=== PATIENT | male | born 1945 | race Caucasian/White ===

== ENCOUNTER → 2021-11-23 10:09 | Outpatient (REF) | payer MEDICARE, OTHER, SELFPAY | LOC: ANHLAB 10:09 | PROVIDERS: PCP Internal Medicine; Visit Provider Nurse Practitioner | DX: L73.8 Other specified follicular disorders (principal) | CPT/HCPCS: 88305 ==

== ENCOUNTER 2023-06-14 16:49 | Emergency (ER) | payer MEDICARE, OTHER, SELFPAY ==
--- NOTE | ~2023-06-14 | CT_ITS ---
EXAMINATION: CTA chest PE protocol DATE: 06/14/2023 17:27 INDICATION: Shortness of breath. TECHNIQUE: Computed tomography angiography (CTA) of the chest was performed with 100 mL Omnipaque-350 intravenous contrast timed to evaluate the pulmonary arteries. Coronal maximum intensity projection 3D-reconstructions were created by the technologist. Automated exposure control and iterative reconst ruction technique were employed. The dose-length product was 449.43 mGy-cm. COMPARISON: Chest 2 views 12/24/2010 FINDINGS: The lungs demonstrate minimal atelectasis. A calcified left lung nodule and calcified left hilar lymph nodes are consistent with old granulomatous disease. No pleural effusion. The heart size is normal. No pericardial effusion. There is no pulmonary embolus. There is a chronic compression fra cture of L1. There are bridging endplate osteophytes at multiple levels in the spine, consistent with diffuse idiopathic skeletal hyperostosis (DISH). IMPRESSION: 1. No pulmonary embolus. Reviewed, dictated and finalized at location E. ENSARY TECHNICIAN IMPRESSION: 1. No pulmonary embolus.
[2023-06-14 16:48] VITALS: BP 138/85; PULSE 86; RESP 20; TEMP 36.2
--- NOTE | 2023-06-14 16:56 | ECG_ITS ---
Measurements Intervals [place] Rate: 70 P: 42 PA: 147 QRS: 15 QRSD: 98 T: 34 QT: 397 QTc: 430 Interpretive Statements SINUS RHYTHM BASELINE ARTIFACT NORMAL ECG NO PREVIOUS ECG AVAILABLE FOR COMPARISON Electronically Signed On 06-15-2023 14:35:52 ADMINISTRATIVE LIAISON by Jacky Kumari M.D.
--- NOTE | 2023-06-14 17:17 | ED.SOB ---
HPI - SOB/Dyspnea General Chief Complaint: Shortness of Breath/Dyspnea Stated Complaint: SOB Time Seen by Provider: 06/14/23 16:50 History of Present Illness HPI Narrative: 78-year-old male with a reported history of type 2 diabetes and remote TIA reports for evaluation for dyspnea for the past 3-4 days. Patient had a total knee replacement by Dr. Palomo on 06/04/23. No known complications from the surgery. He was started on Eliquis postop which he states he has been compliant with. He is presenting for a workup for PE. On My evaluation, the patient's is placed on 2 L nasal cannula satting 100%. He does not normally wear oxygen at home. He reports some swelling in his right extremity secondary to knee replacement. States he has gone to 3 PT appointments since and has had some improvement. Denies redness or purulent drainage out of the incision site. Denies history of COPD, CHF, melena or hematochezia. Denies coughing, fever, chest pain, abdominal pain, nausea or vomiting. Related Data Home Medications Medication Instructions Recorded Confirmed aspirin 325 mg tablet 325 mg PO DAILY 11/03/20 11/03/20 balsalazide 750 mg capsule 2,250 mg PO TID 11/03/20 11/03/20 empagliflozin 10 mg tablet 10 mg PO DAILY 11/03/20 11/03/20 (Jardiance) folic acid 1 mg tablet 1 mg PO DAILY 11/03/20 11/03/20 metformin 500 mg tablet 500 mg PO DAILY 11/03/20 11/03/20 sitagliptin phosphate 100 mg 100 mg PO DAILY 11/03/20 11/03/20 tablet (Januvia) Allergies Allergy/AdvReac Type Severity Reaction Status Date / Time No Known Allergies Allergy Verified 11/23/21 09:48 Review of Systems Review of Systems: CONSTITUTIONAL: Denies fever, chills, or sweats. EYES: Denies visual changes, redness, or discharge. ENT: Denies rhinorrhea, congestion, sore throat, or otalgia. CARDIOVASCULAR: Denies chest pain, palpitations, or edema. RESPIRATORY: See HPI GASTROINTESTINAL: Denies abdominal pain, nausea, vomiting, or diarrhea. GENITOURINARY: Denies dysuria or hematuria. SKIN: Denies rash or itching. MUSCULOSKELETAL: See HPI NEUROLOGIC: Denies headache, numbness, or weakness. PSYCHIATRIC: Denies anxiety or depression. [facility] Past Medical History Medical History Diabetes History of stroke Overweight Surgical History Surgical History History of arthroscopy of knee History of shoulder surgery Hx of inguinal hernia surgery Social History Social History Smoking status: Current some day smoker Tobacco type: cigars Alcohol intake: never Substance use: never Exam Narrative: GENERAL: Well-appearing, well-nourished, and in no acute distress. Patient resting comfortably in exam bed. He is on 2 L nasal cannula, speaking in full sentences. HEAD: Normocephalic, atraumatic. EYES: PERRLA and EOMI. ENT: Nares clear, no rhinorrhea or epistaxis. Mucous membranes moist. NECK: Supple. CHEST: Clear to auscultation. No respiratory distress. HEART: Regular rate and rhythm. No murmur heard. Normal peripheral pulses. ABDOMEN: Soft, nontender, nondistended, normal active bowel sound MSK: RLE: Well-healing surgical incision over the right knee without surrounding erythema or purulent drainage. No warmth to knee. There is generalized edema to right knee. RUE: Mild tenderness overlying the right biceps without overlying skin changes. Full range of motion of shoulder, elbow and all fingers. Sensation intact throughout upper extremity. Axillary, radial, median and ulnar nerves are intact. DP pulse 2 +. SKIN: Warm, dry, no rash. NEURO: No focal deficits. Alert and oriented x3 Course Vital Signs Vital signs: Vital Signs Temperature 97.2 F L 06/14/23 16:48 Pulse Rate 86 06/14/23 16:48 Respiratory Rate 20 06/14/23 16:48 Blood Pressure 138/85 06/14/23 16:48
[2023-06-14 17:25] LABS: Estimated CRCL calculation 75 ml/min; Estimated Glomerular Filt Rate > 60
[2023-06-14 17:37] LABS: Basophils Absolute Auto 0.1 K/mm3 (0.0-0.1); Basophils Percent Auto 0.4 % (0.2-1.2); Eosinophils Absolute Auto 0.1 K/mm3 (0-0.3); Eosinophils Percent Auto 1.2 % (0-4.4); Hematocrit 40.2 % (42.0-52.0); Hemoglobin 13.3 g/dL (14.0-18.0); Immature Granulocyte Absolute 0.06 K/mm3 (0.00-0.031); Immature Granulocyte Percent A 0.5 % (0-0.5); Lymphocytes Absolute Auto 2.21 K/mm3 (0.9-3.2); Lymphocytes Percent Auto 19.6 % (18.3-44.2); Mean Corpuscular HGB Conc 33.1 g/dl (32-36); Mean Corpuscular Hemoglobin 31.1 pg (26-34); Mean Corpuscular Volume 93.9 fl (80-100); Mean Platelet Volume 9.8 fl (7.4-10.4); Monocytes Absolute Auto 0.9 K/mm3 (0.1-0.6); Monocytes Percent Auto 7.6 % (2.6-8.5); Neutrophils Percent Auto 70.7 % (45.5-73.1); Platelet Count Result 356 k/mm3 (150-375); Red Blood Count 4.28 M/mm3 (4.6-6.20); Red Cell Distribution Width 12.7 % (11.5-14.5); White Blood Count 11.3 K/mm3 (4.5-10.0)
[2023-06-14 17:47] LABS: Prothrombin Time 13.6 Seconds (11.1-14.7)
[2023-06-14 17:47] LABS: Alanine Aminotransferase 19 U/L (6-50); Albumin Level 4.5 g/dL (3.5-5.1); Alkaline Phosphatase 102 U/L (38-126); Anion Gap 13 mmol/L (8-16); Aspartate Amino Transferase 31 U/L (17-59); Blood Urea Nitrogen 19 mg/dL (9-20); Calcium 9.5 mg/dL (8.4-10.2); Carbon Dioxide 18 mmol/L (22-30); Chloride 108 mmol/L (98-107); Estimated CRCL calculation 85 ml/min; Estimated Glomerular Filt Rate > 60; Glucose 188 mg/dL (65-110); Potassium 4.3 mmol/L (3.4-5.0); Sodium 139 mmol/L (137-145)
[2023-06-14 17:48] LABS: Partial Thromboplastin Time 34.1 SECONDS (22.3-36.8)
[2023-06-14 17:59] LABS: NT Pro B Type Natriuretic Pept 148 pg/mL (19.9-100); Troponin I < 0.012 ng/mL (0.000-0.034)
[2023-06-14 18:21] LABS: Influenza A QL RT-PCR Negative (Negative); Influenza B QL RT-PCR Negative (Negative); RSV RNA, RT-PCR Negative (Negative); SARS-CoV-2 RNA PCR Negative (Negative)
[2023-06-14 18:52] VITALS: BP 127/76; PULSE 69; RESP 21; O2SAT 100
[2023-06-14 19:07] LABS: Appearance Urine Clear (Clear); Bilirubin Urine Negative (Negative); Blood Urine Negative (Negative); Color Urine Yellow (Yellow); Glucose Urine UA 3+ mg/dL (Negative); Ketones Urine Trace mg/dL (Negative); Leukocyte Esterase Ur Negative LEU/UL (Negative); Nitrate Urine Negative (Negative); Protein Urine Negative (Negative); Urobilinogen Urine 0.2 mg/dL (<2.0); pH Urine 5.5 (5.0-9.0)
--- NOTE | 2023-06-14 19:17 | PC.NURSE ---
Assumed care of pt from JAVI Stafford at this time. Pt resting comfortably in bed. Pt completed road test and satted 98%. EDP Carolin made aware.
[2023-06-14 19:21] LABS: Specific Grav Ur 1.025 (1.001-1.035)
[2023-06-14 19:24] LABS: Add Urine Microscopic? NO
[2023-06-14 19:38] VITALS: BP 129/74; PULSE 70; RESP 17; O2SAT 100
== END 2023-06-14 19:40 | disposition home or self-care (01) ==
PROVIDERS: Emergency Medicine; Emergency Provider Physician Assistant; PCP Internal Medicine
DX: R06.02 Shortness of breath (principal); D64.9 Anemia, unspecified; Z20.822 Contact with and (suspected) exposure to COVID-19; E11.9 Type 2 diabetes mellitus without complications; E66.3 Overweight; Z68.26 Body mass index [BMI] 26.0-26.9, adult; Z86.73 Personal history of transient ischemic attack (TIA), and cerebral infarction without residual deficits; Z96.651 Presence of right artificial knee joint; F17.290 Nicotine dependence, other tobacco product, uncomplicated; Z79.82 Long term (current) use of aspirin; Z79.84 Long term (current) use of oral hypoglycemic drugs
CPT/HCPCS: 71275; 80053; 81003; 83880; 84484; 85025; 85610; 85730; 87637; 93005; 99284; Q9967

== ENCOUNTER 2023-09-24 10:06 | Outpatient (CLI) | payer MEDICARE, OTHER, SELFPAY ==
--- NOTE | 2023-09-24 11:00 | NEURO_ITS ---
Impression: # Diabetic complains of right hand 4th and 5th finger numbness. # No Carpal Tunnel Syndrome. # Right ulnar neuropathy across the elbow. # Needle/EMG exam neurogenic in right 1st DI and ADM. Nerve Conduction Studies Anti Sensory Summary Table Stim Site NR Peak (ms) P-T Amp (?V) Site1 Site2 Delta-P (ms) Dist (cm) Heriberto (m/s) Right Median Anti Sensory (2-3nd Digit) Wrist 4.0 31.7 Wrist 2-3nd Digit 4.0 14.0 35 Wrist 4.1 22.0 Wrist 2-3nd Digit 4.0 14.0 35 Right Radial Anti Sensory (Base 1st Digit) Wrist 2.6 19.2 Wrist Base 1st Digit 2.6 0.0 Right Ulnar Anti Sensory (5th Digit) Wrist 4.2 24.4 Wrist 5th Digit 4.2 14.0 33 Motor Summary Table Stim Site NR Onset (ms) O-P Amp (mV) Site1 Site2 Delta-0 (ms) Dist (cm) Heriberto (m/s) Right Median Motor (Abd Poll Brev) Wrist 4.0 4.8 Elbow Wrist 5.4 30.0 56 Elbow 9.4 3.7 Right Ulnar Motor (Abd Dig Minimi) Wrist 3.3 4.7 A Elbow Wrist 8.0 32.0 40 A Elbow 11.3 3.1 B Elbow Wrist 4.2 20.0 48 B Elbow 7.5 3.6 F Wave Studies NR F-Lat (ms) L-R F-Lat (ms) Right Median (Mrkrs) (Abd Poll Brev) 30.82 Right Ulnar (Mrkrs) (Abd Dig Min) 30.23 EMG Side Muscle Nerve Root Ins Act Fibs Amp Dur Recrt Comment Right 1stDorInt Ulnar C8-T1 Nml 3+ Incr >12ms +2 Right Ext Indicis Radial (Post Int) C7-8 Nml Nml Nml Nml Nml Right Ext Digitorum Radial (Post Int) C7-8 Nml Nml Nml Nml Nml Right BrachioRad Radial C5-6 Nml Nml Nml Nml Nml Right PronatorTeres Median C6-7 Nml Nml Nml Nml Nml Right Abd Poll Brev Median C8-T1 Nml Nml Nml Nml Nml Right ABD Dig Min Ulnar C8-T1 Nml 3+ Incr >12ms +2 MTDD
== END 2023-09-24 10:07 | disposition home or self-care (01) ==
LOC: ANHNEURO 10:07
PROVIDERS: PCP Internal Medicine; Visit Provider Internal Medicine
DX: G56.21 Lesion of ulnar nerve, right upper limb (principal)
CPT/HCPCS: 95886; 95909

== ENCOUNTER 2024-06-09 08:46 | Outpatient (CLI) | payer MEDICARE, OTHER, SELFPAY ==
--- NOTE | ~2024-06-09 | XR_ITS ---
EXAMINATION: XR hand RT min 3V DATE: 06/09/2024 09:03 INDICATION: Trigger thumb, right thumb. TECHNIQUE: 4 views of right hand were obtained. COMPARISON: None. FINDINGS: Alignment is normal. No fracture. There is mild osteoarthritis of distal radioulnar joint, severe osteoarthritis of radioscaphoid joint, mild osteoarthritis of triscaphe joint, and moderate os teoarthritis of first carpometacarpal joint. There is mild osteoarthritis of many of the metacarpopha langeal joints and interphalangeal joints. There is moderate osteoarthritis of first interphalangeal joint and fifth distal interphalangeal joint. IMPRESSION: 1. Polyarticular osteoarthritis. Reviewed, dictated and finalized at location A. EL DEPARTMENT MANAGER
--- OUTSIDE RECORDS SUMMARY | 2024-06-09 08:51 | XMS_ITS | Clinical Summary ---
Author Organization [facility] Address [address] [place] [address] Care Team Providers Care Projection Engineer Name Role Phone Will Spencer MD Primary Care Provider Allergies Active Allergy Reactions Criticality Noted Date Comments Buspirone Apixaban Rash Medium 07/18/2023 Says he thinks he may be allergic Medications folic acid (FOLVITE) 1 mg tablet take 1 tablet (1MG) by oral route every day 0 01/09/2011 Active aspirin 325 mg tablet take 1 tablet (325MG) by oral route every day 0 01/09/2011 Active ONETOUCH DELICA LANCETS 30 gauge misc USE TO TEST BS ONCE D 3 06/26/2018 Active balsalazide (COLAZAL) 750 mg capsule Take 1 capsule (750 mg total) by mouth 3 (three) times a day 180 capsule 08/11/2019 Active blood glucose diagnostic (OneTouch Ultra Test) strip Use to check sugars daily 100 each 11 09/03/2019 Active pravastatin (PRAVACHOL) 20 mg tablet Take 1 tablet (20 mg total) by mouth daily 90 tablet 3 07/18/2023 Active metFORMIN XR (GLUCOPHAGE XR) 500 mg 24 hr tablet TAKE 2 TABLETS TWO TIMES A DAY WITH MEALS 360 tablet 3 10/23/2023 Active Januvia 100 mg tablet TAKE 1 TABLET DAILY 90 tablet 3 01/09/2024 Active Jardiance 10 mg tablet TAKE 1 TABLET EVERY MORNING 90 tablet 3 01/09/2024 Active Active Problems Problem Noted Date Diagnosed Date Acquired trigger finger 07/11/2021 Degenerative joint disease of hand 07/11/2021 Disorder of shoulder 07/11/2021 Incomplete tear of rotator cuff 07/11/2021 Osteoarthritis of knee 07/11/2021 Primary localized osteoarthrosis of shoulder reg ion 07/11/2021 Radiotherapy follow-up 07/11/2021 Shoulder joint pain 07/11/2021 Acquired hallux rigidus of left foot 10/25/2020 Plantar fasciitis of left foot 10/20/2020 History of colonic polyps 12/10/2019 Hyperlipidemia associated with type 2 diabetes [place] 11/05/2017 Assessment & Plan (02/04/2024 2:33 PM CDT): Chronic, stable. Continue current regimen including Pravachol Update lipid profile Assessment & Plan (07/18/2023 11:16 AM CDT): Importance of lowering LDL cholesterol discussed Restart Pravachol Rx sent Assessment & Plan (01/03/2023 3:04 PM CDT): Chronic, well controlled Conitnue Pravastatin Update lipid profile Assessment & Plan (06/28/2022 4:22 PM BICYCLE II ASSEMBLER): Chronic, uncontrolled Increased cardiovascular risk in diabetic patient was discussed Restart pravastatin 20 mg daily Assessment & Plan (12/28/2021 1:33 PM CDT): Chronic, well controlled Low fat Low cholesterol diet Exercise Continue statin therapy Check lipid profile Assessment & Plan (06/27/2021 4:16 PM BICYCLE II ASSEMBLER): Chronic, well controlled Continue current meds Assessment & Plan (01/19/2021 11:56 AM CDT): Lipids checked today. At goal Stay on Pravachol Assessment & Plan (07/12/2020 1:27 PM CDT): Goal of treatment , LDL cholesterol less than 100 ( less than 70 in patients with history of heart attacks and / or strokes ) NonHDL cholesterol ( total cholesterol minus HDL cholesterol ) goal less than 130 ( less than 100 in patients with history of heart attacks and / or strokes ) Low cholesterol, low fat diet was discussed and advised. Daily exercise On statin therapy with Pravastatin. Assessment & Plan (03/01/2020 12:54 PM BICYCLE II ASSEMBLER): Goal of treatment , LDL cholesterol less than 100 ( less than 70 in patients with history of heart attacks and / or strokes ) NonHDL cholesterol ( total cholesterol minus HDL cholesterol ) goal less than 130 ( less than 100 in patients with history of heart attacks and / or strokes ) Low cholesterol, low fat diet was discussed and advised. Daily exercise On statin therapy with Pravachol Assessment & Plan (09/03/2019 1:44 PM CDT): Goal of treatment , LDL cholesterol less than 100 ( less than 70 in patients with history of heart attacks and / or strokes ) NonHDL cholesterol ( total cholesterol minus HDL cholesterol ) goal less than 130 ( less than 100 in patients with history of heart attacks and / or strokes ) Low cholesterol, low fat diet was discussed and advised. Daily exercise Lipids done today On statin therapy with Pravachol Assessment & Plan (03/05/2019 10:05 AM BICYCLE II ASSEMBLER): Goal of treatment , LDL cholesterol less than 100 ( less than 70 in patients with history of heart attacks and / or strokes ) NonHDL cholesterol ( total cholesterol minus HDL cholesterol ) goal less than 130 ( less than 100 in patients with history of heart attacks and / or strokes ) Low cholesterol, low fat diet was discussed and advised. Daily exercise On statin therapy Assessment & Plan (07/22/2018 4:01 PM CDT): Goal of treatment , LDL cholesterol less than 100 ( less than 70 in patients with history of heart attacks and / or strokes ) NonHDL cholesterol ( total cholesterol minus HDL cholesterol ) goal less than 130 ( less than 100 in patients with history of heart attacks and / or strokes ) Low cholesterol, low fat diet was discussed and advised. Daily exercise On statin therapy Assessment & Plan (05/13/2018 10:17 AM BICYCLE II ASSEMBLER): Goal of treatment , LDL cholesterol less than 100 ( less than 70 in patients with history of heart attacks and / or strokes ) NonHDL cholesterol ( total cholesterol minus HDL cholesterol ) goal less than 130 ( less than 100 in patients with history of heart attacks and / or strokes ) Low cholesterol, low fat diet was discussed and advised. Daily exercise On statin therapy Assessment & Plan (11/05/2017 11:56 AM CDT): Goal of treatment , LDL cholesterol less than 100 ( less than 70 in patients with history of heart attacks and / or strokes ) NonHDL cholesterol ( total cholesterol minus HDL cholesterol ) goal less than 130 ( less than 100 in patients with history of heart attacks and / or strokes ) Low cholesterol, low fat diet was discussed and advised. Daily exercise On statin therapy Cerebrovascular accident (CVA) 07/19/2016 Obstructive sleep apnea syndrome 07/19/2016 History of surgical procedure 07/09/2016 Type 2 diabetes mellitus 08/27/2013 Overview (07/27/2016): DMII WO CMP UNCNTRLD Assessment & Plan (02/04/2024 2:33 PM CDT): Chronic, well-controlled. Continue current regimen including metformin, Jardiance and Januvia Importance of diet and exercise was discussed Assessment & Plan (07/18/2023 11:16 AM CDT): Chronic, well controlled Diet and exercise discussed Continue current regimen with Januvia, Jardiance and Metformin Will get report of eye exam Assessment & Plan (01/03/2023 3:04 PM CDT): Hba1c was Lab Results Component Value Date HGBA1C 7.1 01/03/2023 today, indicating adequate DM control Goal Hba1c and blood glucose explained Diet and exercise were advised Prevention and treatment of hyypoglcyemia were discussed with the patient Blood glucose monitoring : 1-2 x wk Adjustment to medications: Continue current regimen with Januavia, Jardiance and Metformin Assessment & Plan (06/28/2022 4:22 PM BICYCLE II ASSEMBLER): Hba1c was Lab Results Component Value Date HGBA1C 7.3 06/28/2022 today, indicating suboptimal DM control Goal Hba1c and blood glucose explained Diet and exercise were advised Prevention and treatment of hyypoglcyemia were discussed with the patient Blood glucose monitoring : 1 or twice a day with fingersticks Adjustment to medications: Continue Januvia and Jardiance Continue metformin Assessment & Plan (12/28/2021 1:33 PM CDT): Hba1c was Lab Results Component Value Date HGBA1C 6.4 12/28/2021 today, indicating adequate DM control Goal Hba1c and blood glucose explained Diet and exercise were advised Prevention and treatment of hyypoglcyemia were discussed with the patient Blood glucose monitoring : 1 x day Adjustment to medications: continue current Assessment & Plan (06/27/2021 4:16 PM BICYCLE II ASSEMBLER): Hba1c was Lab Results Component Value Date HGBA1C 6.9 06/27/2021 today, indicating adequate DM control Goal Hba1c and blood glucose explained Diet and exercise were advised Prevention and treatment of hyypoglcyemia were discussed with the patient Blood glucose monitoring : 1 or twice a week Adjustment to medications: Continue current Assessment & Plan (01/19/2021 11:53 AM CDT): Hba1c was Lab Results Component Value Date HGBA1C 6.4 01/19/2021 today, indicating adequate DM control Goal Hba1c and blood glucose explained Diet and exercise , discussed Prevention and treatment of hyypoglcyemia discussed. Blood glucose monitoring : 1-2 x week Adjustment to oral medications: Continue with current . Assessment & Plan (07/12/2020 1:26 PM CDT): Hba1c was Lab Results Component Value Date HGBA1C 7.3 07/12/2020 today, indicating suboptimal DM control Goals blood sugars of 120-160 and Hba1c under 7 % was explained. 1800 calorie, consistent carb diet recommended, no more than 3-45 grams of carbs per meal, avoiding concentrated sweet drinks and rapid absorption carbs. 25-45 min daily aerobic and resistance exercise recommended Prevention and treatment of hyypoglcyemia discussed. Continue current orals Assessment & Plan (03/01/2020 12:54 PM BICYCLE II ASSEMBLER): Hba1c was Lab Results Component Value Date HGBA1C 6.9 03/01/2020 today, indicating adequate DM control with weight gain Goals blood sugars of 120-160 and Hba1c under 7 % was explained. 1800 calorie, consistent carb diet recommended, no more than 3-45 grams of carbs per meal, avoiding concentrated sweet drinks and rapid absorption carbs. 25-45 min daily aerobic and resistance exercise recommended Prevention and treatment of hyypoglcyemia discussed. Blood glucose monitoring with fingers sticks. Will consider switching to a GLP-1 analog Assessment & Plan (09/03/2019 1:43 PM CDT): Hba1c was Lab Results Component Value Date HGBA1C 6.4 09/03/2019 today, indicating adequate DM control 1800 calorie, consistent carb diet recommended, no more than 3-45 grams of carbs per meal, avoiding concentrated sweet drinks and rapid absorption carbs. 25-45 min daily aerobic and resistance exercise recommended Prevention and treatment of hyypoglcyemia discussed. Blood glucose monitoring with fingers sticks.... Medications: Continue current Assessment & Plan (03/05/2019 10:05 AM BICYCLE II ASSEMBLER): Hba1c was Lab Results Component Value Date HGBA1C 6.4 03/05/2019 today, indicating DM control 127 1800 calorie, consistent carb diet recommended, no more than 3-45 grams of carbs per meal, avoiding concentrated sweet drinks and rapid absorption carbs. 25-45 min daily aerobic and resistance exercise recommended Prevention and treatment of hyypoglcyemia discussed. Blood glucose monitoring with fingers sticks 2-3 x week Medications: Lower Metformin to 1000 mg with dinner only . Assessment & Plan (07/22/2018 4:01 PM CDT): Last Hba1c was 7.1 , indicating better DM control 1800 calorie, consistent carb diet recommended 25-45 min daily aerobic and resistance exercise recommended Prevention and treatment of hyypoglcyemia discussed. Blood glucose monitoring with fingers sticks 1-2 x day . Oral medications: continue current meds. Assessment & Plan (05/13/2018 10:17 AM BICYCLE II ASSEMBLER): Hba1c was Lab Results Component Value Date HGBA1C 9.1 05/13/2018 today, indicating poorly, worsening DM control 1800 calorie, consistent carb diet recommended 25-45 min daily aerobic and resistance exercise recommended Prevention and treatment of hyypoglcyemia discussed. Blood glucose monitoring with fingers sticks 1-2 x day . Oral medications: take meds regularly No changes now Might need to add insulin if hba1c is persistently elevated Assessment & Plan (11/05/2017 11:54 AM CDT): Hba1c was Lab Results Component Value Date HGBA1C 7.3 11/05/2017 today, indicating adequate DM control 1800 calorie, consistent carb diet recommended 30 min daily aerobic and resistance exercise recommended Prevention and treatment of hyypoglcyemia discussed. Blood glucose monitoring with fingers sticks 1-2 x day . Assessment & Plan (05/21/2017 3:13 PM BICYCLE II ASSEMBLER): Hba1c was 7.5 today, indicating sub-optima DM control 1800 calorie, consistent carb diet recommended 30 min daily aerobic and resistance exercise recommended Prevention and treatment of hyypoglcyemia discussed. Blood glucose monitoring with fingers sticks 1-2 x day . Foot care was discussed. Assessment & Plan (10/25/2016 1:58 PM CDT): Hba1c was 6.8 today, indicating adequate DM control 1800 calorie, consistent carb diet recommended 30 min daily aerobic and resistance exercise recommended Foot care discused. Prevention and treatment of hyypoglcyemia discussed. Hyperlipidemia 02/26/2013 Overview (07/25/2016): HYPERLIPIDEMIA NEC/NOS Assessment & Plan (05/21/2017 3:15 PM BICYCLE II ASSEMBLER): Goal of treatment , LDL cholesterol less than 100 ( less than 70 in patients with history of heart attacks and / or strokes ) NonHDL cholesterol goal less than 130 ( less than 100 in patients with history of heart attacks and / or strokes ) Continue statin therapy With Simvastatin Assessment & Plan (10/25/2016 1:58 PM CDT): Goal of treatment , LDL cholesterol less than 100 ( less than 70 in patients with history of heart attacks and / or strokes ) NonHDL cholesterol goal less than 130 / 100 Lipids at goal. Continue statin therapy Low cholesterol diet, exercise advised. Nonspecific colitis 02/14/2011 Surgical History Surgery Date Site/Laterality Comments OTHER SURGICAL HISTORY colitis: under GI care HERNIA REPAIR Hernia repair SHOULDER SURGERY WRIST FRACTURE SURGERY KNEE SURGERY Medical History Medical History Date Comments Hx Other Medical colitis Cerebrovascular accident (CVA) (HCC) Cerebrovascular accident Arthritis Arthritis Hx Other Medical not claustropho bic; Comments: SMALLS 02/25/2014 - Diabetes mellitus (HCC) Inflammatory bowel disease Sleep apnea Family History Medical History Relation Name Comments Cancer Brother Kidney disease Father Renal disease ; Diabetes Father's Brother Diabetes me llitus; Kidney disease Sister Relation Name Status Comments Brother Father Father's Brother Sister Social History Tobacco Use Types Packs/Day Years Used Date Smoking Tobacco: Former Cigars Smokeless Tobacco: Former Chew Tobacco Cessation:Counseling Given: Not Answered Alcohol Use Standard Drinks/Week Comments Yes 0 (1 standard drink = 0.6 oz pur e alcohol) AUDIT-C Answer Date Recorded Q1: How often do you have a drink containing alcohol? Never 02/04/2024 Q2: How many drinks containi ng alcohol do you have on a typical day when you are drinking? Patient does not drink Q3: How often do you have si x or more drinks on one occasion? Never 02/04/2024 PHQ-2 Answer Date Recorded PHQ-2 Total Score (If total score is 3 or more points, staff should administer the PHQ-9) 0 02/04/2024 Sex and Gender Information Value Date Recorded Sex Assigned at Not on file Legal Sex Male 12:23 AM BICYCLE II ASSEMBLER Gender Identity Not on file Sexual Orientation Straight 02/04/2024 2: 03 PM CDT Obstetrics History Last Filed Vital Signs Vital Sign Reading Time Taken Comments Blood Pressure 102/60 02/04/2024 2:04 PM CDT Pulse 78 02/04/2024 2:04 PM CDT Temperature - - Respiratory Rate 18 02/04/2024 2:04 PM CDT Oxygen Saturation - - Inhaled Oxygen Concentration - - Weight 90.4 kg (199 lb 3.2 oz) 02/04/2024 2:04 P M CDT Height 165.1 cm (5' 5 ) 02/04/2024 2:04 PM CDT Body Mass Index 33.15 02/04/2024 2:04 PM CDT Plan of Treatment Health Maintenance Due Date Last Done Comments Hepatitis C Screening 1945 Hepatitis B Screening 1965 Pneumococcal vaccine 65+ (1 of 2 - PCV) 1966 Zoster Vaccine (1 of 2) 1997 Abdominal Aortic Aneurysm (A AA) Screen 01/26/2012 Well Visit 65+ 01/26/2012 DTaP/Tdap/Td Vaccine (1 - Tdap) 07/27/2017 8 Influenza Vaccine (#1) 2023 Foot Exam 01/04/2024 01/03/2023, 09/0 11/2021, 06/27/2021, Additional history exists Dilated Eye Exam 01/16/2024 01/15/2023, , 06/27/2021, Additional history exists Hemoglobin A1C 08/04/2024 02/04/2024, 06/21, 01/03/2023, Additional history exists Albumin Creatinine Ratio, Urine 02/03/2025 02/04/2024, 01/04/2023, 12/28/2021, Additional history exists Depression Screening 02/03/2025 02/04/2024, 02/04/2024, 12/28/2021, Additional history exists Fall Risk Assessment 02/03/2025 02/04/2024 Lipid Panel 02/03/2025 02/04/2024, 12/21, 12/28/2021, Additional history exists eGFR 02/03/2025 02/04/2024, 12/21, 12/28/2021 Procedures Procedure Name Priority Date/Time Associated Diagnosis Comments EGFR Routine 02/04/2024 2:55 PM CDT Type 2 diabetes mellitus with hyperglycemia, without long-term current use of insulin (HCC) LIPID PANEL Routine 02/04/2024 2:55 PM CDT Type 2 diabetes mellitus with hyperglycemia, without long-term current use of insulin (HCC) ALBUMIN CREATININE RATIO, URINE Routine 02/04/2024 2:55 PM CDT Type 2 diabetes mellitus with hyperglycemia, without long-term current use of insulin (HCC) POCT HEMOGLOBIN A1C Routine 02/04/2024 2 :07 PM CDT Type 2 diabetes mellitus with hyperglycemia, without long-term current use of insulin (HCC) DIABETES EYE EXAM Routine 01/15/2023 8:59 AM CDT from Last 3 Months or Most Recently Relevant to Health Maintenance Results * eGFR (02/04/2024 2:55 PM CDT) eGFR >90 >=60 mL/min/1. 73 m2 Comment: Interpretive Data Reference Interval Normal >/= 90 mL/min/1.73m2 Mildly decreased* 60 - 89 mL/min/1.73m2 Mildly to moderately decreased 45 - 59 mL/min/1.73m2 Moderately to severely decreased 30 - 44 mL/min/1.73m2 Severely decreased 15 - 29 mL/min/1.73m2 Kidney Failure < 15 mL/min/1.73m2 *Relative to young adult level Estimated glomerular filtration rate is determined by the 2020 CKD-EPI equation recommended by the National Kidney Foundation (A Unifying Approach to GFR Estimation: Recommendations of the NKF-ASK Task Force on Reassessing the Inclusion of Race in Diagnosing Kidney Disease, JASN 2020). The CKD-EPI equation should not be used for patients with unstable renal function and has not been validated in children and those over 70. Current interpretive data was last reviewed 2021. Blood 02/04/2024 2:55 PM CDT 02/04/2024 5:45 PM CDT us Kenny Jewell MD LAB BLOOD ORDERABLES Final Resul t DI [facility] [id number] [address] Department [place] [address] * Albumin Creatinine Ratio, Urine (02/04/2024 2:55 PM CDT) Albumin Ur <12.0 mg/L Comment: Interpretive Data No reference range established. Current interpretive data was last revised 2018. Creatinine Ur 80.4 mg/dL DI PEREZ Comment: Interpretive Data No reference range established. Current interpretive data was last revised 2018. Albumin Creatinine Ratio, Ur <15 1 - 29 mg/g DI Urine 02/04/2024 2:55 PM CDT 02/04/2024 5:33 PM CDT us Kenny Jewell MD LAB URINE ORDERABLES [facility] [id number] Department [place] [address] * (ABNORMAL) Lipid panel (02/04/2024 2:55 PM CDT) Cholesterol 147 30 - 199 mg/dL Comment: Interpretive Data Ages < or = 19 years Acceptable: <170 mg/dL Borderline high: 170-199 mg/dL High: >or= 200 mg/dL Ages > or = 20 years Desirable: <200 mg/dL Borderline high: 200-239 mg/dL High: >or= 240 mg/dL Literature References: 1. Expert Panel on Integrated Guidelines for Cardiovascular Health and Risk Reduction in Children and Adolescents. Pediatrics 2011;128:S213 2. NCEP Expert Panel. Circulation 2004;110:227 Current Interpretive Data was last revised on 2017. Triglycerides 152(H) <=149 mg/dL DI Comment: Interpretive Data Ages < or = 9 years Acceptable: <75 mg/dL Borderline high: 75-99 mg/dL High: >or= 100 mg/dL Ages 10 to 20 years Acceptable: <90 mg/dL Borderline high: 90-129 mg/dL High: >or= 130 mg/dL Ages > or = 20 years Desirable: <150 mg/dL Borderline high: 150-199 mg/dL High: 200-499 mg/dL Very high: >or= 499 mg/dL Literature References: 1. Expert Panel on Integrated Guidelines for Cardiovascular Health and Risk Reduction in Children and Adolescents. Pediatrics 2011;128:S213 2. NCEP Expert Panel. Circulation 2004;110:227 Current Interpretive Data was last revised on 2017. HDL 43 >=40 mg/dL DI Comment: Interpretive Data Ages < or = 19 years Acceptable: >45 mg/dL Borderline low: 40-45 mg/dL Low: <40 mg/dL Ages > or = 20 years Desirable: >or= 60 mg/dL Low: <40 mg/dL Literature References: 1. Expert Panel on Integrated Guidelines for Cardiovascular Health and Risk Reduction in Children and Adolescents. Pediatrics 2011;128:S213 2. NCEP Expert Panel. Circulation 2004;110:227 Current Interpretive Data was last revised on 2017. LDL, calculated 78 <=129 mg/dL DI P[facility]Z Comment: Interpretive Data Ages < or = 19 years Acceptable: <110 mg/dL Borderline high: 110-129 mg/dL High: >or= 130 mg/dL Ages > or = 20 years Optimal: <100 mg/dL Near optimal: 100-129 mg/dL Borderline high: 130-159 mg/dL High: >160 mg/dL Calculated using the Augustus LDL-C estimating equation. This equation was implemented on 2023. Prior to this date LDL-C was estimated using the Friedewald equation. Literature References: 1. Expert Panel on Integrated Guidelines for Cardiovascular Health and Risk Reduction in Children and Adolescents. Pediatrics 2011;128:S213 2. NCEP Expert Panel. Circulation 2004;110:227 3. Augustus Strong et al. ALEAH Cardiol. 2019August 20;5(5):540-548. doi: [email or web address] Current Interpretive Data was last revised on 2023. Non-HDL Cholesterol 104 mg/dL DI Comment: Interpretive Data Ages < or = 19 years Acceptable: <120 mg/dL Borderline high: 120-144 mg/dL High: >145 mg/dL Ages > or = 20 years When triglycerides are >200 mg/dL, Non-HDL cholesterol is a secondary target of therapy with treatment goals that are 30 mg/dL greater than the LDL cholesterol target. Literature References: 1. Expert Panel on Integrated Guidelines for Cardiovascular Health and Risk Reduction in Children and Adolescents. Pediatrics 2011;128:S213 2. NCEP Expert Panel. Circulation 2004;110:227 Current Interpretive Data was last revised on 2017. Chol/HDL ratio 3 DI Blood 02/04/2024 2:55 PM CDT 02/04/2024 5:33 PM CDT us Kenny Jewell MD LAB [place] [id number] [address] Department [place] [address] * (ABNORMAL) POCT hemoglobin A1c (02/04/2024 2:07 PM CDT) Hemoglobin A1C, POC 6.8 4.0 - 5.6 % Comment:none Capillary blood 02/04/2024 2 :07 PM CDT Kenny Jewell MD POINT OF CARE TEST ORDERABLES Fi nal Result * HM DIABETES EYE EXAM (01/15/2023 8:59 AM CDT) Historical Provider HEALTH MAINTENANCE Final Result from Last 3 Months or Most Recently Relevant to Health Maintenance Insurance MEDICARE [facility] [place] [address] [facility] [place] [address] [facility] Care Teams Projection Engineer Relationship Specialty Start Date End Date Will Spencer MD PCP - General Internal Medicine 05/21/17
--- OUTSIDE RECORDS SUMMARY | 2024-06-09 08:52 | XMS_ITS | Referral Summary ---
Author Organization [facility] Address [address] [place] [address] Care Team Providers Care Board Stacker Name Role Phone Will Spencer MD Primary [...] profile Assessment & Plan (06/28/2022 4:22 PM JACK SPOOLER TENDER): Chronic, uncontrolled Increased cardiovascular risk in diabetic patient was discussed Restart pravastatin 20 mg daily Assessment & Plan (12/28/2021 1:33 PM CDT): Chronic, well controlled Low fat Low cholesterol diet Exercise Continue statin therapy Check lipid profile Assessment & Plan (06/27/2021 4:16 PM JACK SPOOLER TENDER): Chronic, well controlled Continue current meds Assessment [...] Pravastatin. Assessment & Plan (03/01/2020 12:54 PM JACK SPOOLER TENDER): Goal of treatment , LDL cholesterol less [...] Pravachol Assessment & Plan (03/05/2019 10:05 AM JACK SPOOLER TENDER): Goal of treatment , LDL cholesterol less [...] therapy Assessment & Plan (05/13/2018 10:17 AM JACK SPOOLER TENDER): Goal of treatment , LDL cholesterol less [...] Metformin Assessment & Plan (06/28/2022 4:22 PM JACK SPOOLER TENDER): Hba1c was Lab Results Component Value Date [...] current Assessment & Plan (06/27/2021 4:16 PM JACK SPOOLER TENDER): Hba1c was Lab Results Component Value Date [...] orals Assessment & Plan (03/01/2020 12:54 PM JACK SPOOLER TENDER): Hba1c was Lab Results Component Value Date [...] current Assessment & Plan (03/05/2019 10:05 AM JACK SPOOLER TENDER): Hba1c was Lab Results Component Value Date [...] meds. Assessment & Plan (05/13/2018 10:17 AM JACK SPOOLER TENDER): Hba1c was Lab Results Component Value Date [...] . 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 Nonspecific colitis 02/14/2011 Social History Tobacco Use Types Packs/Day Years [...] on file Legal Sex Male 12:23 AM JACK SPOOLER TENDER Gender Identity Not on file Sexual Orientation Straight 02/04/2024 2: 03 PM CDT Last Filed Vital Signs Vital Sign Reading [...] 02/04/2024 2:04 PM CDT Plan of Treatment Not on file Procedures Procedure Name Priority Date/Time Associated Diagnosis [...] BLOOD ORDERABLES Final Resul t DI PEREZ [id number] [address] Department [place] [address] * Albumin Creatinine Ratio, Urine (02/04/2024 2:55 [...] MD LAB [place] [id number] [address] Department [place] [address] * (ABNORMAL) Lipid panel (02/04/2024 2:55 PM [...] on 2017. HDL 43 >=40 mg/dL DI PEREZ Comment: Interpretive Data Ages [...] 2017. LDL, calculated 78 <=129 mg/dL DI Comment: Interpretive Data Ages < [...] NCEP Expert Panel. Circulation 2004;110:227 3. Augustus M et al. ALEAH Cardiol. 2020 August 20;5(5):540-548. doi: [email or web address] Current Interpretive Data was last revised on 2023. Non-HDL Cholesterol 104 mg/dL ID Comment: Interpretive Data Ages < or = [...] 2:55 PM CDT 02/04/2024 5:33 PM CDT Kenny Jewell MD LAB BLOOD ORDERABLES Final Resul t DI PEREZ [id number] [address] Department [place] [address] * (ABNORMAL) POCT hemoglobin A1c (02/04/2024 2:07 PM CDT) Hemoglobin A1C, POC 6.8 4.0 - 5.6 % Comment:none Capillary blood 02/04/2024 2 :07 PM CDT Kenny Jewell MD POINT OF CARE TEST ORDERABLES Fi nal Result * DIABETES EYE EXAM (01/15/2023 8:59 AM CDT) Historical Provider HEALTH MAINTENANCE Final Result from Last 3 Months or Most Recently Relevant to Health Maintenance Insurance MEDICARE [facility] [place] MEDICARE [facility] MEDICARE [facility] Care Teams Board Stacker Relationship Specialty Start Date End Date Will Spencer MD PCP - General Internal Medicine 05/21/17
== END 2024-06-09 08:47 | disposition home or self-care (01) ==
PROVIDERS: PCP Internal Medicine; Visit Provider Plastic Surgery
DX: M65.311 Trigger thumb, right thumb (principal); M18.11 Unilateral primary osteoarthritis of first carpometacarpal joint, right hand
CPT/HCPCS: 73130